=== PATIENT | male | born 1970 | race Caucasian/White ===

== ENCOUNTER 2019-05-10 22:02 | Outpatient (REF) | payer BC, SELFPAY ==
[2019-05-10 20:02] LABS: TSH (W/Ref FT4) 1.02 uIU/mL (0.36-3.74)
[2019-05-13 15:43] LABS: Testosterone, Free 8.63 ng/dL (4.26-16.4); Testosterone, Total 454 ng/dL (240-950)
== END 2019-05-10 22:22 ==
LOC: NCHCN 22:02
PROVIDERS: PCP Family Medicine; Visit Provider Nurse Practitioner
DX: N52.9 Male erectile dysfunction, unspecified (principal)
CPT/HCPCS: 82306; 84402; 84403; 84443

== ENCOUNTER 2019-10-29 10:45 | Day surgery (SDC) | payer BC, SELFPAY ==
[2019-10-29 11:07] VITALS: BP 123/78; PULSE 69; RESP 16; TEMP 36.5; O2SAT 99
[2019-10-29] MEDS: Lactated Ringers 1,000 ML 80 ML IV (11:31)
--- NOTE | 2019-10-29 12:21 | W.PM.DSUDISC ---
Discharge Plan Disposition Patient Disposition: HOME Condition: Good Discharge Details Reason For Visit: Colonoscopy Attending Provider: Brooklyn Flowers Primary Care Provider: Nasima Dow V Home Meds and New Rx's Prescriptions: Continued ibuprofen 200 mg tablet 400 mg PO Q12H PRNRF: 0 Discontinued polyethylene glycol 3350 17 gram/dose powder 238 g PO ONCE Qty: 238 RF: 0 bisacodyl [Dulcolax (bisacodyl)] 5 mg tablet,delayed release (DR/EC) 5 mg PO ONCE Qty: 4 RF: 0 Discharge Instructions Additional Instructions: Findings: One tiny polyp was removed. My office will contact you with biopsy results. Follow up: Plan for colonoscopy in 5 years if the biopsy shows an adenomatous polyp. Please call if you develop: fevers >101.5 Nausea or Vomiting Abdominal pain that is not transient DAY SURGERY UNIT POST COLONOSCOPY INSTRUCTIONS 1. Because there will be medication in your system for the next 24 hours, you may feel a little sleepy. Your coordination will be affected. Therefore: a. Do not drive or operate dangerous equipment for 24 hours. b. Do not drink alcohol beverages for 24 hours (not even beer). c. Plan to go home and rest for the day. 2. Generally there are no restrictions on your activity after a day or so has gone by, but you may feel a bit fatigued for a few days. 3 After you arrive home you may have a light meal and return to a normal diet as you can tolerate it without feeling sick to your stomach. 4. After surgery, you may feel pain or discomfort. This should be only transient, but if it persists please contact your doctor. 5. If there are any questions regarding the findings of your procedure, please feel free to contact your doctor. 6. If you are unable to contact your doctor with a problem, contact the hospital at [phone]. 7. Continue all your regular medications unless directed otherwise. I understand the above instructions and have no questions. Signature of Patient or Responsible Adult Escort Date/Time Name of Responsible Adult Escort Signature of Nurse Date/Time Activity:: Activity as Tolerated Diet:: As Tolerated Discharge Orders Discharge Orders: Discharge Order (Routine); Ordered 10/29/19 Ordered By: Brooklyn Flowers DS: Diagnosis Discharge Diagnosis (1) Colon polyp: Status: Acute (2) Diverticulosis: Status: Acute
--- NOTE | 2019-10-29 12:22 | W.COLOREPORT ---
Date of service: 10/29/19 Time of Service: 13:06 Colonoscopy Report Date of procedure: 10/29/19 Pre-op diagnosis general: Screening Post-op diagnosis procedure note: other (Ascending colon polyp, diveticulosis) Procedure: Colonoscopy with cold forceps polypectomy Surgeon: Brooklyn Flowers Anesthesia proc note operative: MAC Indications: This 49 year old man presents for his first screening colonoscopy. No symptoms or FH colon cancer. Procedure Description: The patient was placed in the left English position. Propofol was titrated to sedation. Digital rectal examination revealed no abnormalities. The scope was advanced to the cecum without difficulty. The ileocecal valve and appendiceal orifice were clearly identified. The prep was good. A diminuitive polyp was identified in the ascending colon and removed with the cold forceps. The scope was slowly withdrawn over the course of greater than 6 minutes with no other abnormalities seen in the ascending, transverse, descending, sigmoid colon or rectum including on retroflexed view. Mild sigmoid diverticulosis was present. The patient tolerated the procedure well and was stable to recovery. If the polyp is adenomatous, he will need a colonoscopy in 5 years.
--- NOTE | 2019-10-29 12:48 | BOWEL_PTH ---
PATIENT: Krish Cardoso LOC: [facility] U#:[id number] AGE/SX: 49/M ROOM: RE10/29/[address]: Brooklyn Flowers MD : [id number] BED: DIS: 10/29/2019 SPEC #: [id number] RECD: 10/29/19 13:06 STATUS: ALE REQ #: [id number] MICHAEL: 10/29/19 12:[address]: Brooklyn Flowers DEPT: Surgical Specimen RECD BY: Thi James ENTERED: 10/29/19 13:07 SP TYPE: Bowel OTHR DR: Nasima Dow V Tissues: 1 - BIOPSY BOWEL Procedures: GROSS AND MICRO LEVEL 4 Comments: [id number]
[2019-10-29 13:31] VITALS: BP 108/68; PULSE 65; RESP 16; TEMP 36.4; O2SAT 99
== END 2019-10-29 13:45 | disposition home or self-care (01) ==
PROVIDERS: PCP Family Medicine; Visit Provider Surgery
PROC: 0DJD8ZZ Inspection of Lower Intestinal Tract, Via Natural or Artificial Opening Endoscopic (ICD-10-PCS; CPT 45378; principal; 2019-10-29 12:30)
DX: Z12.11 Encounter for screening for malignant neoplasm of colon (principal); D12.2 Benign neoplasm of ascending colon; K57.30 Diverticulosis of large intestine without perforation or abscess without bleeding
CPT/HCPCS: 45380; 88305; J2001

== ENCOUNTER 2021-06-07 15:07 | Outpatient (REF) | payer BC, SELFPAY ==
[2021-06-07 15:59] LABS: Calculated LDL 89 mg/dL (<100); Cholesterol 147 mg/dL (<200); Glucose 104 mg/dL (74-106); HDL Cholesterol 42 mg/dL (40-60); Triglyceride 83 mg/dL (<150)
== END 2021-06-07 15:08 | disposition home or self-care (01) ==
LOC: NCHCN 15:07
PROVIDERS: PCP Family Medicine; Visit Provider Registered Nurse
DX: Z00.00 Encounter for general adult medical examination without abnormal findings (principal)
CPT/HCPCS: 80061; 82947

== ENCOUNTER 2023-09-02 15:15 | Outpatient (REF) | payer BC, SELFPAY ==
[2023-09-02 14:38] LABS: Abs Immature Grans 0.01 10^3/uL (0.0-0.06); Absolute Basophil Count 0.04 10^3/uL (0.0-0.2); Absolute Eosinophil Count 0.02 10^3/uL (0.0-0.7); Absolute Lymphocyte Count 1.81 10^3/uL (1.2-3.4); Absolute Monocyte Count 0.68 10^3/uL (0.1-0.8); Absolute Neutrophil Count 3.66 10^3/uL (1.2-6.7); Basophils % 0.6 %; Eosinophils % 0.3 %; HCT 49.1 % (40.0-50.0); HGB 17.3 g/dL (13.5-17.5); Immature Grans % 0.2 %; Lymphocytes % 29.1 %; MCH 30.4 pg (27.0-33.0); MCHC 35.2 % (32.0-36.0); MCV 86 fL (80-95); MPV 10.2 fL (8.0-11.0); Monocytes % 10.9 %; Neutrophils % 58.9 %; Platelet Count 266 10^3/uL (130-400); RBC 5.69 10^6/uL (4.36-5.78); RDW 12.5 % (11.8-14.1); RDW-SD 39.2 fL; WBC 6.22 10^3/uL (4.4-10.8)
[2023-09-02 15:04] LABS: Anion Gap 3.1 mmol/L (3-11); BUN 12 mg/dL (7-18); CO2 33.9 mmol/L (21.0-32.0); CREATININE 0.9 mg/dL (0.70-1.30); Calcium 9.4 mg/dL (8.5-10.1); Chloride 107 mmol/L (98-107); Estimated GFR 102.12 (mL/min/1.73m2); Glucose 113 mg/dL (74-106); Sodium 144 mmol/L (136-145); TSH 1.21 uIU/Ml (0.36-3.74)
== END 2023-09-02 15:16 | disposition home or self-care (01) ==
LOC: NCHCN 15:15
PROVIDERS: PCP Family Medicine; Visit Provider Family Medicine
DX: F43.23 Adjustment disorder with mixed anxiety and depressed mood (principal); F41.8 Other specified anxiety disorders
CPT/HCPCS: 80048; 84443; 85025